=== PATIENT | male | born 1995 | race Caucasian/White ===

== ENCOUNTER 2016-09-22 17:33 | Outpatient (CLI) | payer BC ==
--- NOTE | 2016-09-23 14:00 | Diagnostic Imaging Report ---
Indication: Cough Comparison: None 2 views of the chest obtained. Findings: Cardiomediastinal silhouette and pulmonary vascularity are within normal limits for age. The diaphragmatic contour is smooth and costophrenic angles are sharp. No pleural effusions are identified. The bones are unremarkable. Impression: No acute disease
== END 2016-09-22 19:33 | disposition home or self-care (01) ==
LOC: RAD 17:33
DX: R06.02 Shortness of breath (principal); R05 Cough
CPT/HCPCS: 71020